=== PATIENT | female | born 1985 | race Caucasian/White ===

== ENCOUNTER 2022-04-01 18:13 | Emergency (ER) | payer OTHER ==
[2022-04-01 22:02] VITALS: BP 121/71; PULSE 70
== END 2022-04-01 22:02 | disposition home or self-care (01) ==
LOC: MW.ED 18:13
DX: G56.01 Carpal tunnel syndrome, right upper limb (principal); F17.210 Nicotine dependence, cigarettes, uncomplicated; Z79.899 Other long term (current) drug therapy
CPT/HCPCS: 73110-26-RT; 73110-RT; 99283

== ENCOUNTER 2022-04-15 12:45 | Emergency (ER) | payer OTHER ==
[2022-04-15] MEDS ORDERED: Sodium Chloride 0.9% 10 ML Syringe FLUSH PRN (13:19)
[2022-04-15] MEDS ORDERED: Sodium Chloride 0.9% 2.5 ML Syringe FLUSH PRN (13:19)
[2022-04-15] MEDS ORDERED: Acetaminophen/HYDROcodone 325-5 MG Tab PO ONE (13:21)
[2022-04-15] MEDS ORDERED: Sodium Chloride 0.9% 1,000 ML IV ONE (13:21)
[2022-04-15 14:36] LABS: CARBON DIOXIDE,CO2 24.2 mmol/L (21.0-32.0); POTASSIUM,K 3.8 mmol/L (3.5-5.1)
[2022-04-15] MEDS ORDERED: Iopamidol 755 MG/ML 500 ML Multipack Bottle IVPUSH STA (15:04)
[2022-04-15] MEDS ORDERED: Ketorolac 30 MG/ML SDV IVPUSH ONE (16:53)
[2022-04-15] MEDS ORDERED: Ondansetron 4 MG/2 ML SDV IVPUSH ONE (16:53)
[2022-04-15] MEDS ORDERED: Morphine 4 MG/ML VIAL IVPUSH ONE (16:54)
[2022-04-15 17:12] VITALS: BP 132/86; PULSE 69
== END 2022-04-15 17:17 | disposition home or self-care (01) ==
LOC: MW.ED 12:45
DX: S63.502A Unspecified sprain of left wrist, initial encounter (principal); S30.1XXA Contusion of abdominal wall, initial encounter; S60.212A Contusion of left wrist, initial encounter; S39.91XA Unspecified injury of abdomen, initial encounter; Z79.899 Other long term (current) drug therapy; V18.0XXA Pedal cycle driver injured in noncollision transport accident in nontraffic accident, initial encounter; Y92.410 Unspecified street and highway as the place of occurrence of the external cause
CPT/HCPCS: 36415; 73110; 74177; 80053; 81001; 84703; 85025; 96361; 96374; 96375; 99284; A9270; J1885; J2270; J2405; J3490; J7030; Q9967